=== PATIENT | male | born 2005 | race Caucasian/White ===

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

== ENCOUNTER 2023-03-26 04:15 | Emergency (ER) | payer OTHER, MEDICAID ==
[~2023-03-26] VITALS: Ht 172.7 cm; Wt 76.8 kg
[~2023-03-26 04:15] MED LIST changes: -BENZ0.5T4 PO; +BENZ0.5T44 PO
[2023-03-26] MEDS ORDERED: LORazepam 2 mg/ml vial IM ONE (04:45)
[2023-03-26] MEDS ORDERED: LORA2TAB96 PO (05:41)
[2023-03-26 05:48] VITALS: BP 116/78; PULSE 65; RESP 16; TEMP 98.7; O2SAT 98
== END 2023-03-26 05:49 | disposition home or self-care (01) ==
LOC: ER 04:16
DX: F41.9 Anxiety disorder, unspecified (principal); F32.A Depression, unspecified; Z88.5 Allergy status to narcotic agent; Z79.899 Other long term (current) drug therapy
CPT/HCPCS: 96372; 99283; J2060

== ENCOUNTER 2023-11-18 21:08 | Emergency (ER) | payer OTHER, MEDICAID ==
[~2023-11-18] VITALS: Ht 172.7 cm; Wt 170.0 kg
[~2023-11-18 21:08] MED LIST changes: -BENZ0.5T44 PO; -CLON0.2T PO; -LURA120T PO; +NO HOME MEDS; -OLAN10TA3 PO; -OXCA150T14 PO; -PROP10TA10 PO
[2023-11-18 21:17] VITALS: TEMP 99
[2023-11-18] MEDS ORDERED: CIPR7.5D7 RIGHT EAR (22:32)
[2023-11-18 23:18] VITALS: BP 112/78; PULSE 71; RESP 14; O2SAT 99
== END 2023-11-18 23:20 | disposition home or self-care (01) ==
LOC: ER 21:09
DX: H60.8X1 Other otitis externa, right ear (principal); F41.9 Anxiety disorder, unspecified; F32.A Depression, unspecified; Z98.890 Other specified postprocedural states; Z88.8 Allergy status to other drugs, medicaments and biological substances; Z91.048 Other nonmedicinal substance allergy status
CPT/HCPCS: 99283

== ENCOUNTER 2024-01-24 18:12 | Emergency (ER) | payer OTHER, MEDICAID ==
[~2024-01-24] VITALS: Ht 170.2 cm; Wt 79.8 kg
[~2024-01-24 18:12] MED LIST changes: +CIPR7.5D7 RIGHT EAR
[2024-01-24] MEDS ORDERED: TRIA15CR61 TOP (20:02)
[2024-01-24] MEDS ORDERED: PRED20TA PO (20:02)
[2024-01-24] MEDS: dexamethasone sod phosphate 10mg/ml inj IM STA (20:19)
[2024-01-24] MEDS: famotidine 20mg tablet PO ONE (20:19)
[2024-01-24] MEDS: diphenhydrAMINE 50 mg/ml inj IM ONE (20:19)
[2024-01-24 20:28] VITALS: BP 138/62; PULSE 82; RESP 18; TEMP 98.6; O2SAT 98
== END 2024-01-24 20:29 | disposition home or self-care (01) ==
LOC: ER 18:12
DX: L50.9 Urticaria, unspecified (principal); F41.9 Anxiety disorder, unspecified; F32.A Depression, unspecified; Z79.2 Long term (current) use of antibiotics
CPT/HCPCS: 96372; 99284; J1100; J1200

== ENCOUNTER 2024-06-30 15:30 | Emergency (ER) | payer OTHER, MEDICAID ==
[~2024-06-30] VITALS: Ht 175.3 cm; Wt 79.8 kg
[2024-06-30 16:46] LABS: BASOPHILS % (AUTO) 0.3 % (0-1); EOSINOPHILS # (AUTO) 0.1 X10'3 (0-0.9); EOSINOPHILS % (AUTO) 0.5 % (0-6); HEMATOCRIT 45.2 % (42.0-52.0); HEMOGLOBIN 15.5 g/dl (14.0-17.9); LYMPHOCYTES # (AUTO) 1.4 X10'3 (1.1-4.8); LYMPHOCYTES % (AUTO) 13.1 % (21-51); MEAN CORPUSCULAR HEMOGLOBIN 30.2 PG (27.0-31.0); MEAN CORPUSCULAR HGB CONC 34.4 g/dL (33.0-36.5); MEAN CORPUSCULAR VOLUME 87.9 FL (78-98); MEAN PLATELET VOLUME 8.5 FL (7.4-10.4); MONOCYTES # (AUTO) 0.8 X10'3 (0-0.9); MONOCYTES % (AUTO) 8.1 % (2-12); PLATELET COUNT 240 X10'3 (140-440); RED BLOOD COUNT 5.14 X10'6 (4.70-6.10); RED CELL DISTRIBUTION WIDTH 13.3 % (11.5-14.5); WHITE BLOOD COUNT 10.3 X10'3 (4.5-11.0)
[2024-06-30 17:08] LABS: ALBUMIN 4.7 G/DL (3.4-5.0); ANION GAP 10 (8-16); BLOOD UREA NITROGEN 16 MG/DL (7-18); BUN/CREATININE RATIO 22.5 (10.0-20.0); CALCIUM 9.1 MG/DL (8.5-10.1); CHLORIDE 103 MMOL/L (99-107); CREATININE 0.71 MG/DL (0.60-1.10); ETHANOL < 10 MG/DL (<10); GLUCOSE 102 MG/DL (70-104); SODIUM 138 MMOL/L (135-145); THYROID STIMULATING HORMONE 1.85 ulU/ml (0.34-4.50); eGFR > 90 ML/MIN
[2024-06-30] MEDS: haloperidol lactate 5mg/ml inj IM ONE (18:38)
[2024-06-30] MEDS: diphenhydrAMINE 50 mg/ml inj IM ONE (18:38)
[2024-06-30] MEDS: midazolam 1 mg/ML 2ml injection IM ONE (18:38)
[2024-06-30] MEDS: MIDAZolam 5mg/ml 2ml vial IM ONE (19:19)
[2024-06-30] MEDS ORDERED: DEXT20CA4 PO (19:52)
[2024-06-30] MEDS ORDERED: CETI10TA14 PO (19:52)
[2024-07-01 12:58] LABS: BILIRUBIN,URINE NEGATIVE (Neg); CLARITY,URINE CLEAR (Clear); COLOR,URINE STRAW (Yellow); GLUCOSE, URINE 100 mg/dl (Neg); KETONES,URINE NEGATIVE (Neg); LEUKOCYTE ESTERASE ,URINE NEGATIVE (Neg); NITRITES, URINE NEGATIVE (Neg); OCCULT BLOOD,URINE NEGATIVE (Neg); PROTEIN,URINE NEGATIVE (Neg); UROBILINOGEN,URINE 0.2 E.U/dL (0.2-1.0)
[2024-07-01 13:03] LABS: UA COLLECTION TYPE NON-SPECIFIED
[2024-07-01 13:12] LABS: URINE AMPHETAMINE SCREEN NEGATIVE (Neg); URINE BARBITUATE SCREEN NEGATIVE (Neg); URINE BENZODIAZEPINES SCREEN NEGATIVE (Neg); URINE CANNABINOID SCREEN POSITIVE (Neg); URINE COCAINE SCREEN NEGATIVE (Neg); URINE METHADONE SCREEN NEGATIVE (Neg); URINE OPIATE SCREEN NEGATIVE (Neg); URINE PHENCYCLIDINE SCREEN NEGATIVE (Neg)
[2024-07-01] MEDS: haloperidol 5mg tablet PO ONE ×2 (17:15→19:21)
[2024-07-01] MEDS: diphenhydrAMINE 25mg capsule PO ONE (17:15)
[2024-07-01] MEDS: LORazepam 1 MG tablet PO ONE (17:16)
[2024-07-02 06:07] VITALS: TEMP 97.9
[2024-07-02] MEDS: DEXTROAMPHETAMINE PO SCH (08:00)
[2024-07-02] MEDS: AMPHETAMINE PO SCH (08:00)
[2024-07-02 08:01] VITALS: BP 122/64; PULSE 55; RESP 14; O2SAT 100
== END 2024-07-02 12:40 | disposition left against medical advice (07) ==
LOC: ER 15:32
DX: R45.851 Suicidal ideations (principal); F32.A Depression, unspecified; F41.9 Anxiety disorder, unspecified; F91.1 Conduct disorder, childhood-onset type; Z20.822 Contact with and (suspected) exposure to COVID-19
CPT/HCPCS: 36415; 80048; 80305; 80320; 81003; 84443; 85025; 87811; 96372; 99285; J1200; J1630; J2250; Q0163

== ENCOUNTER 2024-07-09 15:36 | Emergency (ER) | payer OTHER, MEDICARE, MEDICAID ==
[~2024-07-09] VITALS: Ht 172.7 cm; Wt 72.0 kg
[~2024-07-09 15:36] MED LIST changes: +CETI10TA14 PO; +DEXT20CA4 PO
[2024-07-09 16:24] VITALS: BP 111/72; PULSE 96; RESP 16; O2SAT 95
[2024-07-09] MEDS ORDERED: TRIA15CR61 TOP (16:45)
[2024-07-09] MEDS ORDERED: HYDR-3686 PO (16:45)
[2024-07-09 17:02] VITALS: TEMP 98.9
== END 2024-07-09 17:04 | disposition home or self-care (01) ==
LOC: ER 15:37
DX: L50.9 Urticaria, unspecified (principal); F31.9 Bipolar disorder, unspecified; F41.9 Anxiety disorder, unspecified
CPT/HCPCS: 99283

== ENCOUNTER 2024-08-05 12:50 | Emergency (ER) | payer OTHER, MEDICARE, MEDICAID ==
[~2024-08-05] VITALS: Ht 190.5 cm; Wt 75.0 kg
[~2024-08-05 12:50] MED LIST changes: +HYDR-3686 PO; +TRIA15CR61 TOP
[2024-08-05] MEDS: haloperidol lactate 5mg/ml inj IM ONE (13:21)
[2024-08-05] MEDS: diazepam inj 5 MG/ML inj. IM ONE (13:21)
[2024-08-05] MEDS: diphenhydrAMINE 50 mg/ml inj IM ONE (13:22)
[2024-08-05 13:43] LABS: BASOPHILS % (AUTO) 0.6 % (0-1); EOSINOPHILS % (AUTO) 0.7 % (0-6); HEMATOCRIT 38.7 % (42.0-52.0); HEMOGLOBIN 13.3 g/dl (14.0-17.9); LYMPHOCYTES # (AUTO) 1.1 X10'3 (1.1-4.8); MEAN CORPUSCULAR HEMOGLOBIN 29.4 PG (27.0-31.0); MEAN CORPUSCULAR HGB CONC 34.3 g/dL (33.0-36.5); MEAN CORPUSCULAR VOLUME 85.8 FL (78-98); MEAN PLATELET VOLUME 9.3 FL (7.4-10.4); MONOCYTES # (AUTO) 0.4 X10'3 (0-0.9); MONOCYTES % (AUTO) 7.8 % (2-12); NEUTROPHILS # (AUTO) 3.5 X10'3 (1.8-7.7); NEUTROPHILS % (AUTO) 69.9 % (42-75); PLATELET COUNT 188 X10'3 (140-440); RED BLOOD COUNT 4.51 X10'6 (4.70-6.10); RED CELL DISTRIBUTION WIDTH 13.5 % (11.5-14.5)
[2024-08-05] MEDS: ziprasidone IM 20mg inj **IM only IM ONE (13:46)
[2024-08-05 14:07] LABS: ALBUMIN 4.2 G/DL (3.4-5.0); ANION GAP 12 (8-16); BLOOD UREA NITROGEN 10 MG/DL (7-18); BUN/CREATININE RATIO 12.7 (10.0-20.0); CALCIUM 8.8 MG/DL (8.5-10.1); CHLORIDE 106 MMOL/L (99-107); CREATININE 0.79 MG/DL (0.60-1.10); GLUCOSE 125 MG/DL (70-104); POTASSIUM 3.4 MMOL/L (3.5-5.1); SODIUM 142 MMOL/L (135-145); TOTAL CARBON DIOXIDE 23.7 MMOL/L (24-32); eCRCL 157 ML/MIN; eGFR > 90 ML/MIN
[2024-08-05 14:10] LABS: ETHANOL < 10 MG/DL (<10)
[2024-08-05 18:42] LABS: BILIRUBIN,URINE NEGATIVE (Neg); CLARITY,URINE CLEAR (Clear); COLOR,URINE YELLOW (Yellow); GLUCOSE, URINE NEGATIVE (Neg); KETONES,URINE TRACE mg/dl (Neg); LEUKOCYTE ESTERASE ,URINE NEGATIVE (Neg); NITRITES, URINE NEGATIVE (Neg); OCCULT BLOOD,URINE NEGATIVE (Neg); PROTEIN,URINE NEGATIVE (Neg); UROBILINOGEN,URINE 0.2 E.U/dL (0.2-1.0)
[2024-08-05 18:46] LABS: UA COLLECTION TYPE VOIDED
[2024-08-05] MEDS ORDERED: HYDR-3686 PO (19:18)
[2024-08-05 19:31] LABS: URINE AMPHETAMINE SCREEN POSITIVE (Neg); URINE BARBITUATE SCREEN NEGATIVE (Neg); URINE BENZODIAZEPINES SCREEN POSITIVE (Neg); URINE CANNABINOID SCREEN POSITIVE (Neg); URINE COCAINE SCREEN NEGATIVE (Neg); URINE METHADONE SCREEN NEGATIVE (Neg); URINE OPIATE SCREEN NEGATIVE (Neg); URINE PHENCYCLIDINE SCREEN NEGATIVE (Neg)
[2024-08-06] MEDS: hydrOXYzine 25 MG tablet PO SCH (00:53)
[2024-08-06] MEDS: cetirizine 10mg tablet PO SCH (08:48)
[2024-08-06 09:28] VITALS: BP 124/74; PULSE 82; RESP 14; TEMP 98.1; O2SAT 100
== END 2024-08-06 11:03 | disposition home or self-care (01) ==
LOC: ER 12:50
DX: F23 Brief psychotic disorder (principal); F31.9 Bipolar disorder, unspecified; Z20.822 Contact with and (suspected) exposure to COVID-19
CPT/HCPCS: 36415; 80048; 80305; 80320; 81003; 84443; 85025; 87811; 96372; 99285; J1200; J1630; J3360; J3486; Q0177; A6253

== ENCOUNTER → 2024-08-10 | Emergency (ER) | payer OTHER, MEDICARE, MEDICAID ==
[~2024-08-10] VITALS: Ht 172.7 cm; Wt 81.5 kg
[~2024-08-10] MED LIST changes: -CIPR7.5D7 RIGHT EAR; +IBUP-1984 PO; -NO HOME MEDS
[2024-08-10 04:01] VITALS: BP 117/57; PULSE 66; RESP 16; TEMP 98.1; O2SAT 98
[2024-08-10] MEDS: ibuprofen tablet 400 MG TABLET PO ONE (04:36)
== END | disposition home or self-care (01) ==
LOC: ER 03:59
DX: M79.672 Pain in left foot (principal); F41.9 Anxiety disorder, unspecified; F32.A Depression, unspecified; Z79.899 Other long term (current) drug therapy
CPT/HCPCS: 99282

== ENCOUNTER 2024-08-26 01:23 | Emergency (ER) | payer OTHER, MEDICARE, MEDICAID ==
[~2024-08-26] VITALS: Ht 170.2 cm; Wt 74.9 kg
[2024-08-26 01:29] VITALS: BP 137/95; PULSE 134; RESP 16; O2SAT 97
== END 2024-08-26 06:56 | disposition left against medical advice (07) ==
LOC: ER 01:23
DX: M25.512 Pain in left shoulder (principal); M79.672 Pain in left foot; Z53.21 Procedure and treatment not carried out due to patient leaving prior to being seen by health care provider

== ENCOUNTER 2024-09-02 23:44 | Emergency (ER) | payer OTHER, MEDICARE, MEDICAID ==
[~2024-09-02] VITALS: Ht 180.3 cm; Wt 86.4 kg
[2024-09-02 23:47] VITALS: BP 133/80; PULSE 94; RESP 18; TEMP 98.4; O2SAT 99
== END 2024-09-03 00:46 | disposition left against medical advice (07) ==
LOC: ER 23:46
DX: S70.312A Abrasion, left thigh, initial encounter (principal); Z53.21 Procedure and treatment not carried out due to patient leaving prior to being seen by health care provider; X58.XXXA Exposure to other specified factors, initial encounter; Y93.89 Activity, other specified; Y92.89 Other specified places as the place of occurrence of the external cause; Y99.8 Other external cause status

== ENCOUNTER 2024-09-03 02:56 | Emergency (ER) | payer OTHER, MEDICARE, MEDICAID ==
[~2024-09-03] VITALS: Ht 180.3 cm; Wt 86.4 kg
--- NOTE | 2024-09-03 05:11 | Physician Documentation ---
History of Present Illness ~ Chief Complaint: Anxiety Stated Complaint: ANXIETY Time Seen by MD: 05:06 Primary Medical Doctor: unknown HPI 19 year old male presents but it is difficult to obtain a history or chief complaint. He stammers and is requesting "medication" but doesn't say what for or what is bothering him. Medication Reconciliation Allergies: Coded Allergies: No Known Allergies (Unverified , 09/03/24) Scheduled Cetirizine HCl (Cetirizine HCl), 1 TAB PO DAILY, (Reported) Dextroamphetamine/Amphetamine (Dextroamp-Amphet ER 20 mg Cap), 1 CAP PO QAM, (Reported) Hydroxyzine Hcl (Atarax), 1 TAB PO Q12H, (Reported) Ibuprofen* (Motrin*), 800 MG PO Q12H Ibuprofen* (Motrin*), 800 MG PO Q12H Triamcinolone Acetonide 0.5% Crm* (Kenalog 0.5% Crm*), 1 APPLIC TOP Q12H Past Medical History Past Medical History: *PSYCH*, Anxiety, Bipolar, Depression Past Surgical History: other Alcohol Use: None Drug Use: none Lives with: Family Lives In: Home Occupation: child Review of Systems All Other Systems at this time: Reviewed and Negative Physical Exam Vital Signs: RN Vital Signs have been reviewed: Yes, Temperature: 98.1, Source: Oral, Heart Rate: 91, Respiratory Rate: 18, BP: 131/74, Pulse Oximetry: 99, We ight: 86.360 Physical Exam HEENT: PERRL, moist oral mucosa, EOMI Pulmonary: No respiratory distress MSK: no deformity Skin: w/d/i, no rash Neuro: alert, nonfocal Psych: paucity of speech, responding to internal stimuli Progress Progress Note Doctor Clarissa I received this patient in sign-out 19-year-old male presenting fo r bizarre behavior. He has known history of ADHD and autism and multiple ER visits for agitation and 5150 holds. He is unable to provide any history. I evaluated the patient at bedside he is extremely anxious and has no insight poor judgment and appears extremely tense pacing the room. Offered him p.o. Versed IM olanzapine as he is clearly escalating per nursing staff and given his history of aggressive behavior we will proceed with high dose oral option given that he is voluntarily taking medications currently Patient continues to have episodes of severe agitation and attempts to run other emergency department after his medication has worn off. He is currently resting comfortably following olanzapine IM 10 mg and Ativan Results/Orders Reviewed/noted all lab results: Yes (Independently interpreted labs no acute abnormality) Results/Orders Medications Received in ER Medications (Trade) Dose Ordered Sig/Marilou Route PRN Reason Start Time Stop Time Status Last Admin Dose Admin (Geodon IMIM ONLY) 20 mg ONCE ONCE IM 09/04/24 06:25 09/04/24 06:29 DC 09/04/24 06:35 20 MG Vital Signs 09/03/24 09/03/24 09/03/24 09/03/24 02:59 05:17 06:04 08:14 Temp 98.1 98.0 Pulse 91 87 80 Resp 18 16 18 16 B/P (MAP) 131/74 132/84 (100) 127/59 (81) Pulse Ox 99 99 98 O2 Flow Rate 0 0 09/03/24 09/03/24 09/03/24 09/03/24 08:30 08:45 09:00 09:15 Temp 98.0 98.0 98.0 98.0 Pulse 78 74 76 76 Resp 16 16 14 14 B/P (MAP) 122/60 (80) 125/61 (82) 119/58 (78) 104/60 (75) Pulse Ox 98 98 98 99 O2 Flow Rate 0 0 09/03/24 09/03/24 09/03/24 09/03/24 09:30 09:45 10:00 10:15 Temp 98.0 98.0 98.0 98.1 Pulse 69 71 68 68 Resp 14 14 14 14 B/P (MAP) 110/59 (76) 109/60 (76) 114/58 (76) 109/58 (75) Pulse Ox 99 99 97 97 09/03/24 09/03/24 09/03/24 09/03/24 10:30 10:45 11:00 11:15 Temp 98.1 98.1 98.1 98.1 Pulse 70 71 71 69 Resp 16 16 16 16 B/P (MAP) 116/60 (78) 116/62 (80) 112/61 (78) 118/64 (82) Pulse Ox 97 97 97 99 09/03/24 09/03/24 09/03/24 5 11:30 13:30 13:45 13:45 Temp 98.1 98.4 98.1 98.2 Pulse 74 107 111 110 Resp 14 22 20 23 B/P (MAP) 120/59 (79) 148/98 (115) 148/96 (113) 144/95 (111) Pulse Ox 99 99 99 99 O2 Flow Rate 0 0 0 09/03/24 5/ 5/ 5 14:00 14:15 14:30 14:45 Temp 98.2 98.3 98.3 98.2 Pulse 95 87 80 79 Resp 22 18 18 18 B/P (MAP) 134/98 (110) 146/89 (108) 146/88 (107) 123/74 (90) Pulse Ox 100 99 100 100 O2 Flow Rate 0 0 0 0 09/03/24/ 5/ 5 15:00 15:15 15:30 15:45 Temp 98.2 98.0 98.0 98.0 Pulse 79 80 62 Resp 16 16 16 16 B/P (MAP) 124/66 (85) 145/99 (114) 145/96 (112) 118/65 (82) Pulse Ox 99 99 99 99 O2 Flow Rate 0 0 0 0 09/03/24 09/03/24 5/ 5 16:00 16:15 16:30 16:45 Temp 98.0 98.1 98.0 98.0 Resp 14 16 16 16 B/P (MAP) 122/68 (86) 130/73 (92) 140/62 (88) 132/74 (93) Pulse Ox 99 100 100 100 O2 Flow Rate 0 0 0 0 09/03/24/ 5/ 5 17:00 17:15 17:30 17:45 Temp 98.0 98.0 98.0 98.0 Resp 16 16 16 16 B/P (MAP) 114/91 (99) 118/61 (80) 121/54 (76) 105/71 (82) Pulse Ox 100 100 100 100 O2 Flow Rate 0 0 0 09/03/24 5/ 5/18 5/ 18:00 18:15 18:34 19:02 Temp 98.0 98.0 98.0 Resp 16 16 16 B/P (MAP) 99/54 (69) 98/52 (67) 95/47 (63) Pulse Ox 100 99 99 09/03/24 09/03/24 09/03/24 09/03/24 19:05 19:20 19:35 19:45 Temp 98.0 98.0 Pulse 87 49 59 59 Resp 16 16 17 B/P (MAP) 120/87 (98) 109/55 (73) 99/55 (70) 98/60 (73) Pulse Ox 100 99 100 98 O2 Flow Rate 0 0 09/03/24 09/03/24 09/03/24 09/03/24 20:00 20:15 20:30 21:06 Temp 98.0 98.0 98.0 98.0 Pulse 77 87 42 Resp 18 19 19 18 B/P (MAP) 110/87 (95) 100/50 (67) 99/77 (84) 99/43 (61) Pulse Ox 100 99 99 99 O2 Flow Rate 0 0 0 0 09/04/24 09/04/24 06:04 06:45 Pulse 71 65 Resp 16 14 B/P (MAP) 118/77 (91) 121/64 (83) Pulse Ox 99 98 Laboratory Tests Test 09/03/24 09:25 09/03/24 09:28 09/03/24 11:10 SARS-CoV-2 Antigen (Rapid) Negative White Blood Count 5.2 Red Blood Count 4.39 L Hemoglobin 12.8 L Hematocrit 38.3 L Mean Corpuscular Volume 87.2 Mean Corpuscular Hemoglobin 29.2 Mean Corpuscular Hemoglobin Concent 33.5 Red Cell Distribution Width 13.8 Platelet Count 206 Mean Platelet Volume 9.2 Neutrophils (%) (Auto) 68.0 Lymphocytes (%) (Auto) 22.0 Monocytes (%) (Auto) 9.6 Eosinophils (%) (Auto) 0.1 Basophils (%) (Auto) 0.3 Neutrophils # (Auto) 3.6 Lymphocytes # (Auto) 1.2 Monocytes # (Auto) 0.5 Eosinophils # (Auto) 0.0 Basophils # (Auto) 0.0 CBC Comment Sodium Level 142 Potassium Level 3.1 L Chloride Level 106 Carbon Dioxide Level 27.3 Anion Gap 9 Blood Urea Nitrogen 11 Creatinine 0.73 Estimated GFR/1.73 m2 > 90 BUN/Creatinine Ratio 15.1 Glucose Level 93 Calcium Level 9.2 Total Bilirubin 0.6 Aspartate Amino Transf (AST/SGOT) 46 H Alanine Aminotransferase (ALT/SGPT) 43 Alkaline Phosphatase 56 Total Protein 6.9 Albumin 4.2 Globulin 2.7 Albumin/Globulin Ratio 1.6 H Chemistry Comments Ethyl Alcohol Level < 10 Urine Specimen Description Urinal Urine Color Straw Urine Clarity Clear Urine pH 6.0 Urine Specific [place] <=1.005 Urine Protein 30 H Urine Glucose (UA) Negative Urine Ketones Negative Urine Occult Blood Negative Urine Nitrite Negative Urine Bilirubin Negative Urine Urobilinogen 0.2 Urine Leukocyte Esterase Negative Urine RBC 0-2 Urine WBC 0-4 Urine Squamous Epithelial Cells Few Urine Amorphous Urates 1+ Urine Bacteria None seen Urine Culture Indicated Not ind Volume Urine Centrifuged 10 ml Urine Comment Urine Opiates Screen Negative Urine Methadone Screen Negative Urine Fentanyl Screen Negative Urine Barbiturates Screen Negative Urine Phencyclidine Screen Negative Urine Amphetamines Screen Positive H Urine Benzodiazepines Screen Negative Urine Cocaine Screen Negative Urine Cannabinoids Screen Positive H Drug Screen Comment Medical Decision Making Additional info obtained from: old records (Multiple prior ER visits reviewed) Findings 19 year old male with apparent psychiatric disorder. Will offer ativan and attempt to obtain labs and clearance for behavioral health evaluation. Will sign out to oncoming ER physician. [facility] evaluated the patient and determine a safe discharge [facility]. Establish at most of patient's issue were behavioral. Patient now has a safe discharge plan we will be discharged from the ED Differential Dx:Considerations: Include: Alcohol abuse, Anxiety, Encephaloathy, Schizophrenia, Substance abuse, Other Departure Disposition: 01 HOME / SELF CARE / HOMELESS Impression: Primary Impression: Agitation Condition: Stable Discharge Instructions: Panic Attack Additional Instructions: Transfer orders for [facility]: At this time there is no evidence of an emergent medical condition that would preclude (admission/transfer) to a psychiatric unit via [facility] protocol for further psychiatric, as well as medical evaluation and treatment. At this time I have no reason to believe that transfer via [facility] protocol would have serious medical compromise in the patient's health. Referrals: NO PRIMARY CARE PROVIDER (PCP) Signature Scribe Signature: . Attestation: . BARTOLO PERSON MD September 03, 2024 05:11 BRANDON ANDERSON MD September 03, 2024 07:28 REYNALDO BLACK NP September 04, 2024 08:42
[2024-09-03] MEDS: LORazepam 1 MG tablet PO ONE (05:15)
[2024-09-03] MEDS ORDERED: OLANZapine **IM** 10 mg inj. IM PRN (06:25)
[2024-09-03] MEDS: OLANZapine 5mg rapidly disint. tablet PO ONE ×2 (07:14)
[2024-09-03] MEDS: ketamine 50 mg/ml 10ml vial IM ONE (08:15)
[2024-09-03] MEDS: LORazepam 2 mg/ml vial ONE (08:19)
[2024-09-03] MEDS: LORazepam 2 mg/ml vial IM ONE (08:21)
[2024-09-03 09:41] LABS: BASOPHILS % (AUTO) 0.3 % (0-1); EOSINOPHILS % (AUTO) 0.1 % (0-6); HEMATOCRIT 38.3 % (42.0-52.0); HEMOGLOBIN 12.8 g/dl (14.0-17.9); LYMPHOCYTES # (AUTO) 1.2 X10'3 (1.1-4.8); MEAN CORPUSCULAR HEMOGLOBIN 29.2 PG (27.0-31.0); MEAN CORPUSCULAR HGB CONC 33.5 g/dL (33.0-36.5); MEAN CORPUSCULAR VOLUME 87.2 FL (78-98); MEAN PLATELET VOLUME 9.2 FL (7.4-10.4); MONOCYTES # (AUTO) 0.5 X10'3 (0-0.9); MONOCYTES % (AUTO) 9.6 % (2-12); NEUTROPHILS # (AUTO) 3.6 X10'3 (1.8-7.7); PLATELET COUNT 206 X10'3 (140-440); RED BLOOD COUNT 4.39 X10'6 (4.70-6.10); RED CELL DISTRIBUTION WIDTH 13.8 % (11.5-14.5); WHITE BLOOD COUNT 5.2 X10'3 (4.5-11.0)
[2024-09-03 09:55] LABS: ALANINE AMINOTRANSFERASE 43 U/L (12-78); ALBUMIN 4.2 G/DL (3.4-5.0); ALBUMIN/GLOBULIN RATIO 1.6 (1.1-1.5); ALKALINE PHOSPHATASE 56 IU/L (46-116); ANION GAP 9 (8-16); ASPARTATE AMINO TRANSFERASE 46 U/L (10-37); BILIRUBIN,TOTAL 0.6 MG/DL (0.1-1.0); BLOOD UREA NITROGEN 11 MG/DL (7-18); BUN/CREATININE RATIO 15.1 (10.0-20.0); CALCIUM 9.2 MG/DL (8.5-10.1); CHLORIDE 106 MMOL/L (99-107); CREATININE 0.73 MG/DL (0.60-1.10); GLUCOSE 93 MG/DL (70-104); POTASSIUM 3.1 MMOL/L (3.5-5.1); SODIUM 142 MMOL/L (135-145); TOTAL CARBON DIOXIDE 27.3 MMOL/L (24-32); TOTAL PROTEIN 6.9 G/DL (6.4-8.2); eCRCL 170 ML/MIN; eGFR > 90 ML/MIN
[2024-09-03 09:56] LABS: ETHANOL < 10 MG/DL (<10)
[2024-09-03 11:34] LABS: BILIRUBIN,URINE NEGATIVE (Neg); CLARITY,URINE CLEAR (Clear); COLOR,URINE STRAW (Yellow); GLUCOSE, URINE NEGATIVE (Neg); KETONES,URINE NEGATIVE (Neg); LEUKOCYTE ESTERASE ,URINE NEGATIVE (Neg); NITRITES, URINE NEGATIVE (Neg); OCCULT BLOOD,URINE NEGATIVE (Neg); PROTEIN,URINE 30 mg/dl (Neg); UROBILINOGEN,URINE 0.2 E.U/dL (0.2-1.0)
[2024-09-03 11:37] LABS: UA COLLECTION TYPE URINAL
[2024-09-03 11:38] LABS: URINE AMPHETAMINE SCREEN POSITIVE (Neg); URINE BARBITUATE SCREEN NEGATIVE (Neg); URINE BENZODIAZEPINES SCREEN NEGATIVE (Neg); URINE CANNABINOID SCREEN POSITIVE (Neg); URINE COCAINE SCREEN NEGATIVE (Neg); URINE METHADONE SCREEN NEGATIVE (Neg); URINE OPIATE SCREEN NEGATIVE (Neg); URINE PHENCYCLIDINE SCREEN NEGATIVE (Neg)
[2024-09-03 11:42] LABS: AMORPHOUS URATES 1+; BACTERIA,URINE NONE SEEN /HPF (Neg); RBC,URINE 0-2 /HPF (0-2); SQUAMOUS EPITHELIAL CELL,UR FEW /LPF (FEW); WBC,URINE 0-4 /HPF (0-4)
[2024-09-03] MEDS: OLANZapine **IM** 10 mg inj. IM ONE ×2 (13:45→13:50)
[2024-09-03] MEDS: diazepam 5mg tablet PO ONE (21:35)
[2024-09-04] MEDS: ziprasidone IM 20mg inj **IM only IM ONE (06:35)
[2024-09-04 11:10] VITALS: BP 136/89; PULSE 76; RESP 14; TEMP 98; O2SAT 99
== END 2024-09-04 11:14 | disposition home or self-care (01) ==
LOC: ER 02:57
DX: R45.1 Restlessness and agitation (principal); F31.9 Bipolar disorder, unspecified; F41.9 Anxiety disorder, unspecified; Z20.822 Contact with and (suspected) exposure to COVID-19
CPT/HCPCS: 36415; 80053; 80305; 80320; 81001; 85025; 87811; 96372; 99285; J2060; J3486; J3490

== ENCOUNTER 2024-09-05 21:19 | Emergency (ER) | payer OTHER, MEDICARE, MEDICAID ==
[~2024-09-05] VITALS: Ht 172.7 cm; Wt 71.4 kg
[2024-09-05 21:23] VITALS: BP 128/68; PULSE 86; RESP 16; TEMP 98.6; O2SAT 98
== END 2024-09-05 23:48 | disposition left against medical advice (07) ==
LOC: ER 21:19
DX: Z00.8 Encounter for other general examination (principal); Z76.0 Encounter for issue of repeat prescription; Z53.21 Procedure and treatment not carried out due to patient leaving prior to being seen by health care provider